=== PATIENT | male | born 1965 | race Caucasian/White ===

== ENCOUNTER 2024-02-17 12:14 | Observation (INO) | payer OTHER, SELFPAY ==
[2024-02-17] VITALS (15 sets, daily range): BP systolic 126–145; BP diastolic 85–95; PULSE 73–106; RESP 12–20; TEMP 35.9–36.9; O2SAT 93–98; BMI 24.0; BMI 23.2
[2024-02-17] MEDS: 0.9 % SODIUM CHLORIDE 1000 ml 1,000 ML IV ×2 (13:00→21:42)
[2024-02-17 13:11] LABS: Lactate* 2.8 mmol/L (0.5-1.9); PCO2 VBG 48 mmHG (40-50); PO2 VBG < 30.1 mmHG (25-47); pH VBG 7.302 (7.32-7.43)
[2024-02-17 13:12] LABS: HCO3 VBG 24 mmol/L (21-28)
[2024-02-17 13:15] LABS: Basophils Percent Auto 0.4 % (0.0-3.0); Eosinophils Percent Auto 0.4 % (0.0-7.0); Hematocrit 48.6 % (37.0-53.0); Hemoglobin* 16.9 gm/dL (13.5-17.5); Immature Granulocytes Pct Auto 0.5 %; Lymphocytes Percent Auto 18.6 % (20-44); Mean Corpuscular HGB Conc 35 gm/dL (32-36); Mean Corpuscular Hemoglobin 30 pg (26-34); Mean Corpuscular Volume 86 fL (80-100); Monocytes Percent Auto 6.5 % (0.0-11.0); Neutrophils Percent Auto 73.6 % (42.0-72.0); Platelet Count* 219 K/uL (140-440); RDW Coefficient of Variation % 11.2 % (11.5-15.5); Red Blood Count 5.64 m/uL (4.30-5.90); White Blood Count* 11.23 K/uL (4.50-11.00)
[2024-02-17 13:19] LABS: Slide Review Reflex No
[2024-02-17 13:28] LABS: Albumin* 5.1 g/dL (3.3-5.0)
[2024-02-17 13:29] LABS: Chloride* 94 mmol/L (96-114); Potassium* 4.7 mmol/L (3.6-5.1); Sodium* 130 mmol/L (135-149)
[2024-02-17 13:31] LABS: Creatinine* 0.8 mg/dL (0.5-1.5); Est. Creatinine Clearance* 101.88; Estimated Glomerular Filt Rate 103 ml/min
[2024-02-17 13:32] LABS: Alanine Aminotransferase* 26 U/L (4-50); Alkaline Phosphatase* 115 U/L (40-150); Anion Gap 15 mEq/L (7-15); Aspartate Amino Transferase* 29 U/L (12-35); Bilirubin Direct* 0.4 mg/dL (0.0-0.5); Bilirubin Total* 0.9 mg/dL (0.1-1.5); Blood Urea Nitrogen* 24 mg/dL (7-30); Carbon Dioxide* 21 mmol/L (20-32); Total Protein* 8.2 g/dL (6.0-8.3)
[2024-02-17 13:34] LABS: Appearance Urine Clear (Clear); Bilirubin Urine Negative (Negative); Color Urine Yellow (Yellow); Glucose Urine 3+ (Negative); Ketones Urine 2+ (Negative)
[2024-02-17 13:35] LABS: Blood Urine Negative (Negative); Leukocyte Esterase Urine Negative (Negative); Nitrite Urine Negative (Negative); Protein Urine Negative (Negative); RBC Urine 0-2 (0-2); Squamous Epithelial Cell Urine Few (None-Few); Urobilinogen Urine 0.2 (0.2-1.0); WBC Urine 0-2 (0-5); pH Urine 5.5 (5.0-8.5)
[2024-02-17 13:41] LABS: Glucose* 631 mg/dL (60-115)
[2024-02-17] MEDS: INSULIN REGULAR, HUMAN 100 UNIT/ML VIAL 10 UNIT IVP (13:42)
[2024-02-17 13:45] LABS: Troponin I* < 0.01 ng/mL (0.01-0.04)
--- NOTE | 2024-02-17 14:01 | ED_ITS ---
HPI - General Adult General Chief complaint: Diabetic Related Problem Stated complaint: high blood sugar Time Seen by Provider: 02/17/24 12:15 Source: patient Mode of arrival: ambulatory Limitations: no limitations History of Present Illness HPI narrative: 58-year-old male coming in today concerned about high blood sugars. Patient states that in the last few days he has started feeling more thirsty and has been urinating significantly more than usual. Patient states that he was diagnosed with prediabetes approximately 4 years ago and was placed on metformin. He states that he ran out of his medications along with statin and other medications he was taking at that time, and he did not get them refilled. With the increased thirst and urination he started rechecking sugars and they are in the 500s. Patient presented today for evaluation. He states that he has been feeling lightheaded, every now and then he gets chest discomfort, he also complains of coffee ground appearance of his stool that he has noticed over the last couple of weeks. He does have a history of a bleeding gastric ulcer, he is on daily omeprazole and does continue to take that. He states that he started taking his metformin 1000 mg p.o. b.i.d. in the last couple of days but it causes stomach discomfort. Patient does feel a bit lightheaded, denies vertiginous symptoms. Related Data Home Medications ?Medication ?Instructions ?Recorded ?Confirmed metformin 1,000 mg tablet 1,000 mg PO BID 02/17/24 02/17/24 Allergies Allergy/AdvReac Type Severity Reaction Status Date / Time No Known Drug Allergies Allergy Verified 02/17/24 12:23 Review of Systems Status of ROS: Reports: 10 or more systems reviewed and unremarkable except as noted in History and below [facility] Social History Smoking Status: Never smoker Do you use any of these nicotine containing products: None Second hand tobacco smoke exposure: No How often do you have a drink containing alcohol: monthly or less How many standard drinks containing alcohol do you have on a typical day: 1 or 2 How often do you have six or more drinks on one occasion: Never AUDIT-C Alcohol total score: 1 Non-prescribed substance use: marijuana (any form) Exam Narrative: Exam Narrative: Well-nourished well-developed patient in no acute distress. Alert and oriented. Answers questions appropriately. Mood and affect are appropriate. Thoughts are goal oriented and rational. No tangential or magical thinking noted. Patient speaks in full sentences without needing to catch his breath. HEENT: Normocephalic atraumatic. Pupils are equally round reactive to light. Extraocular muscles are intact. Conjunctivae are moist without any icterus noted. Moist mucous membranes. Neck is soft. Cardiovascular: Heart is regular rhythm, mildly tachycardic, S1 and S2 are present without any murmurs. Lungs: Clear to auscultation bilaterally no wheezes rhonchi or rales are appreciated. Patient takes deep breaths without any discomfort. Abdomen: Soft and nontender nondistended with normal bowel sounds. No guarding or rebound. No masses or organomegaly appreciated. Extremities: Bilateral lower extremities are without edema. Skin: Well perfused. Const: Vital Signs, click to edit/add: Vital Signs - 24 hr 02/17/24 12:19 02/17/24 12:50 Temperature 96.6 F L Pulse Rate [Right Pulse Oximeter] 106 H Respiratory Rate 20 Blood Pressure [Ri ght Upper Arm] 132/85 Pulse Oximetry 95 98 Oxygen Delivery Me thod Room Air Course Course ED Course: Point of care glucose greater than 600. EKG, read by me, shows normal sinus rhythm with a pulse of 93. IV is established and we start the patient on normal saline and regular insulin bolus. CBC is fairly unremarkable. Chemistries show sodium at 1:30 a.m., normal potassium at 4.7, low chloride at 94. Normal renal function. Glucose is 631. Lactate elevated at 2.8. Normal LFTs, normal troponin. VBG shows a pH of 7.30 with a normal pCO2 and HC03. UA positive for ketones and glucose. Repeat glucose after insulin and fluids: 448. Discussed patient with hospitalist, who has accepted the patient for admission. Vital Signs Vital signs: Initial Vital Signs Temperature 96.6 F L 02/17/24 12:19 Temperature Source Temporal Artery Scan 02/17/24 12:19 Pulse Rate 106 H 02/17/24 12:19 Pulse Rhythm Regular 02/17/24 12:19 Pulse Strength 3+ Normal 02/17/24 12:19 Respiratory Rate 20 02/17/24 12:19 Blood Pressure 132/85 02/17/24 12:19 Blood Pressure Mean 100 02/17/24 12:19 Blood Pressure Position Sitting 02/17/24 12:19 Pulse Oximetry 95 02/17/24 12:19 Oxygen Delivery Method Room Air 02/17/24 12:19 Vital Signs Temperature 96.6 F L 02/17/24 12:19 Pulse Rate 106 H 02/17/24 12:19 Respiratory Rate 20 02/17/24 12:19 Blood Pressure 132/85 02/17/24 12:19 Pulse Oximetry 95 02/17/24 12:19 Oxygen Delivery Method Room Air 02/17/24 12:19 Temperature 96.6 F L 02/17/24 12:19 Pulse Rate 106 H 02/17/24 12:19 Respiratory Rate 20 02/17/24 12:19 Blood Pressure 132/85 02/17/24 12:19 Pulse Oximetry 98 02/17/24 12:50 Oxygen Delivery Method Room Air 02/17/24 12:19 Medications Administered Medications: Discontinued Medications Generic Name Dose Route Start Last Admin Trade Name Freq PRN Reason Stop Dose Admin Sodium Chloride 1,000 mls @ 1,000 mls/hr 02/17/24 12:45 02/17/24 14:16 0.9 % Sodium Chloride 1000 Ml IV 02/17/24 13:44 Infused .Q1H SAMEERA Infusion Insulin Human Regular 10 unit 02/17/24 12:47 02/17/24 13:42 Insulin Regular, Human 100 Unit/Ml Vial IVP 02/17/24 12:48 10 unit ONCE ONE Administration Medical Decision Making MDM Narrative Medical decision making narrative: 58-year-old male with diabetes and hyperglycemia. Patient will be admitted for further management. Lab Data Lab results reviewed: Yes I reviewed the patient's lab results Labs: Lab Results 02/17/24 02/17/24 02/17/24 Range/Units 12:50 12:55 13:07 WBC 11.23 H (4.50-11.00) K/uL RBC 5.64 (4.30-5.90) m/uL Hgb 16.9 (13.5-17.5) gm/dL Hct 48.6 (37.0-53.0) % MCV 86 (80-100) fL MCH 30 (26-34) pg MCHC 35 (32-36) gm/dL RDW Coeff of [place] 11.2 L (11.5-15.5) % Plt Count 219 (140-440) K/uL Neut % (Auto) 73.6 H (42.0-72.0) % Lymph % (Auto) 18.6 L (20-44) % Cross % (Auto) 6.5 (0.0-11.0) % Eos % (Auto) 0.4 (0.0-7.0) % Baso % (Auto) 0.4 (0.0-3.0) % Neut # (Auto) 8.30 H (1.7-7.0) K/uL Lymph # (Auto) 2.10 (0.90-2.90) K/uL Cross # (Auto) 0.70 (0.00-0.90) K/UL Eos # (Auto) 0.00 (0.00-0.50) K/uL Baso # (Auto) 0.00 (0.00-0.30) K/uL Abs Immat Gran (auto) 0.10 (0.00-0.30) K/uL Imm/Tot Granulo (auto) 0.5 % VBG pH 7.302 L (7.32-7.43) VBG pCO2 48 (40-50) mmHG VBG pO2 < 30.1 (25-47) mmHG VBG HCO3 24 (21-28) mmol/L Sodium 130 L (135-149) mmol/L Potassium 4.7 (3.6-5.1) mmol/L Chloride 94 L (96-114) mmol/L Carbon Dioxide 21 (20-32) mmol/L Anion Gap 15 (7-15) mEq/L BUN 24 (7-30) mg/dL Creatinine 0.8 (0.5-1.5) mg/dL Estimated Creat Clear 101.88 Estimated GFR 103 ml/min Glucose 631 H* (60-115) mg/dL Lactate 2.8 H (0.5-1.9) mmol/L Calcium 10.0 (8.4-10.6) mg/dL Magnesium 2.0 (1.5-2.6) mg/dL Total Bilirubin 0.9 (0.1-1.5) mg/dL Direct Bilirubin 0.4 (0.0-0.5) mg/dL AST 29 (12-35) U/L ALT 26 (4-50) U/L Alkaline Phosphatase 115 (40-150) U/L Troponin I < 0.01 L (0.01-0.04) ng/mL Total Protein 8.2 (6.0-8.3) g/dL Albumin 5.1 H (3.3-5.0) g/dL Urine Color Yellow (Yellow) Urine Appearance Clear (Clear) Urine pH 5.5 (5.0-8.5) Ur Specific [place] 1.010 (1.000-1.030) Urine Protein Negative (Negative) Urine Glucose (UA) 3+ A (Negative) Urine Ketones 2+ A (Negative) Urine Blood Negative (Negative) Urine Nitrite Negative (Negative) Urine Bilirubin Negative (Negative) Urine Urobilinogen 0.2 (0.2-1.0) Ur Leukocyte Esterase Negative (Negative) Urine RBC 0-2 (0-2) Urine WBC 0-2 (0-5) Ur Squamous Epith Cells Few (None-Few) Urine Bacteria None (None) POC Glucose 600 H* (60-115) mg/dl ECG Data Attestation: I personally reviewed and interpreted this ECG as follows: Discharge Plan Discharge Clinical Impression: New onset type 2 diabetes mellitus, Acute hyperglycemia Patient Disposition: Admitted As Observation Condition: Stable Prescriptions: No Action metformin 1,000 mg tablet 1,000 mg PO BID Follow Up/Referrals: Devang Mulligan MD [Primary Care Provider] -
[2024-02-17 14:19] LABS: Glucose, Point-of-Care* 600 mg/dl (60-115)
--- NOTE | 2024-02-17 15:28 | PM.IMHP1 ---
Hospitalist- H&P: HPI History of Present Illness Date Seen: 02/17/24 Chief complaint: high blood sugar Narrative: Jordan Spear is a 58 year old man presents with the 3 week history of increasing blurred vision, polyuria, polydipsia, intermittent nausea and retching. States for the last 2-4 days he has had ?coffee-ground? appearance to his stool intermittently. Decided to start omeprazole for this. Denies brenda bright red blood per rectum, hematemesis, or coffee-ground emesis. In the last few days he decided to check his blood sugars and they were greater than 500, read by his blood glucose monitoring device as high. He opted to restart metformin 1000 mg twice daily which she had prescribed to him 3 years ago in which he had quit 3 years ago due to concerns of abdominal discomfort. He states his blood sugars the last couple of days have been as low as 375-450. Last 2 days has had increasing lightheadedness and intermittent orthostasis. Review of Systems Status of ROS: Reports: 10 or more systems reviewed and unremarkable except as noted in History and below Narrative: No recent fevers, rigors, diaphoresis. Denies dyspnea, cough, worsening headache, dysuria, urgency, or hematuria. Denies diarrhea. No skin concerns such as cellulitis or abscess or ulcer. Cardiopulmonary review of systems otherwise unremarkable. Lives with his , Steph. Designates Steph as his power of analytics director for health should that be required, her cell phone number is [phone]. Requests full resuscitation in the event of cardiopulmonary demise. Primary care physician is Dr. Mulligan. Has an appointment with his primary care physician at the end of February. Ordinarily has water down drink of alcohol 3 times weekly. Has not had any alcoholic consumption for the last 2 weeks. Denies use of tobacco products. Acknowledges smoking marijuana 2 to 3 times a day. 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 [facility] Medical History (Updated 02/17/24 @ 15:50 by José Miguel Odom MD) History of noncompliance with medical treatment ?Z91.199 - Patient's noncompliance with other medical treatment and regimen due to unspecified reason (ICD-10) Marijuana use ?F12.90 - Cannabis use, unspecified, uncomplicated (ICD-10) History of peptic ulcer disease ?Z87.11 - Personal history of peptic ulcer disease (ICD-10) History of prediabetes ?Z87.898 - Personal history of other specified conditions (ICD-10) Surgical History Status post colonoscopy ?Z98.890 - Other specified postprocedural states (ICD-10) Family History Brother Diabetes Mother Diabetes Heart disease Father Heart disease Social History What is your current living situation?: I presently have a place to live Problems where you live: no known problems Problems where you live details: none In the past 12 months, utilities in danger of being shut off: no In past 12 months, lack of transportation kept you from medical appts, meetings, work, or getting things needed for daily living: no In the past 12 mos, have been you worried that your food would run out before you had money to buy more?: never true In the past 12 mos, the food you bought just didn't last and you didn't have money to buy more?: never true Highest level of school completed/degree received: some college, no degree Smoking Status: Never smoker Do you use any of these nicotine containing products: None Second hand tobacco smoke exposure: No How often do you have a drink containing alcohol: 2-3 times a week Alcohol type: hard liquor How many standard drinks containing alcohol do you have on a typical day: 1 or 2 How often do you have six or more drinks on one occasion: Never AUDIT-C Alcohol total score: 3 Non-prescribed substance use: marijuana (any form) Caffeine: Yes How often does anyone, including family, friends and others, physically hurt you: never How often does anyone, including family, friends and others, insult or talk down to you: never How often does anyone, including family, friends and others, threaten you with harm: never How often does anyone, including family, friends and others, scream or curse at you: never service: No Meds Home Medications and Allergies Home Medications ?Medication ?Instructions ?Recorded ?Confirmed ?Type aspirin 81 mg tablet,delayed 81 mg PO DAILY 02/17/24 02/17/24 History release atorvastatin 20 mg tablet 20 mg PO QHS 02/17/24 02/17/24 History metformin 1,000 mg tablet 1,000 mg PO BID 02/17/24 02/17/24 History omeprazole 20 mg capsule,delayed 20 mg PO DAILY 02/17/24 02/17/24 History release Allergies Allergy/AdvReac Type Severity Reaction Status Date / Time No Known Drug Allergies Allergy Verified 02/17/24 12:23 Exam Narrative: Exam Narrative: I examined patient in the emergency department. Appears comfortable and in no acute distress. Indicates he is feeling a little better with IV fluids and insulin. Hearing is adequate. Alert and oriented to self, place, time, situation. From the, articulate, cooperative. External auditory canals and tympanic membranes are normal bilaterally. Midline nasal septum. Conjugate gaze. Dry buccal mucosa. Dentition in fair repair. Neck is supple. Midline trachea. Normal thyroid. No JVD or hepatojugular reflux. No head neck lymphadenopathy. Lungs are clear to auscultation without wheezing, rhonchi, or rales. Chest wall excursions are full. No CVA tenderness. Heart tones with regular rhythm, normal S1-S2, without murmur, gallop, or rub. PMI not laterally displaced. Abdomen with active bowel sounds, soft, nontender. No rebound or guarding. No hepatosplenomegaly or masses. Extremities without edema. No focal motor neurologic deficits. Cranial nerves 3-12 grossly intact. Skin is warm, dry, intact. No icterus, jaundice, cyanosis, petechiae, rashes. Const: Vital Signs, click to edit/add: Vital Signs - 24 hr 02/17/24 12:19 02/17/24 12:50 02/17/24 13:08 Temperature 96.6 F L Pulse Rate 95 Pulse Rate [Pulse Oximeter] Pulse Rate [Right Pulse Oximeter] 106 H Respiratory Rate 20 Blood Pressure 132/92 H Blood Pressure [Ri ght Upper Arm] 132/85 Pulse Oximetry 95 98 94 Oxygen Delivery Me thod Room Air 02/17/24 13:09 02/17/24 13:15 02/17/24 13:30 Temperature Pulse Rate 94 90 91 Pulse Rate [Pulse Oximeter] Pulse Rate [Right Pulse Oximeter] Respiratory Rate Blood Pressure Blood Pressure [Ri ght Upper Arm] Pulse Oximetry 93 96 96 Oxygen Delivery Me thod 02/17/24 13:45 02/17/24 14:00 02/17/24 14:04 Temperature Pulse Rate 90 95 91 Pulse Rate [Pulse Oximeter] Pulse Rate [Right Pulse Oximeter] Respiratory Rate Blood Pressure Blood Pressure [Ri ght Upper Arm] Pulse Oximetry 94 93 95 Oxygen Delivery Me thod 02/17/24 14:17 02/17/24 14:30 02/17/24 15:02 Temperature 97.9 F Pulse Rate 97 97 Pulse Rate [Pulse Oximeter] 97 Pulse Rate [Right Pulse Oximeter] Respiratory Rate 12 Blood Pressure Blood Pressure [Ri ght Upper Arm] Pulse Oximetry 96 95 97 Oxygen Delivery Me thod Room Air Hospitalist - H&P: Result Labs Labs: Short CBC 02/17/24 Range/Units 12:55 WBC 11.23 H (4.50-11.00) K/uL Hgb 16.9 (13.5-17.5) gm/dL Hct 48.6 (37.0-53.0) % Plt Count 219 (140-440) K/uL BMP 02/17/24 12:55 Sodium 130 L Potassium 4.7 Chloride 94 L Carbon Dioxide 21 BUN 24 Creatinine 0.8 Glucose 631 H* Calcium 10.0 Cardiac Enzymes 02/17/24 Range/Units 12:55 Troponin I < 0.01 L (0.01-0.04) ng/mL Liver Function 02/17/24 Range/Units 12:55 Total Bilirubin 0.9 (0.1-1.5) mg/dL Direct Bilirubin 0.4 (0.0-0.5) mg/dL AST 29 (12-35) U/L ALT 26 (4-50) U/L Alkaline Phosphatase 115 (40-150) U/L Albumin 5.1 H (3.3-5.0) g/dL Urine 02/17/24 Range/Units 13:07 Urine Color Yellow (Yellow) Urine Appearance Clear (Clear) Urine pH 5.5 (5.0-8.5) Ur Specific [place] 1.010 (1.000-1.030) Urine Protein Negative (Negative) Urine Glucose (UA) 3+ A (Negative) ECG ECG interpretation date: 02/17/24 Interpretation: Normal sinus rhythm without ischemic changes. Assessment and Plan Assessment and plan (1) Acute hyperglycemia: Problem comment: -uncontrolled diabetes mellitus type 2. Patient just now coming to terms with the fact that he has diabetes mellitus type 2. -aspart insulin 5 units with each meal plus sliding scale for now. -will start on lower dose of metformin to see if he tolerates it at 500 mg twice daily. Consider dose increase if tolerates. -IV fluids with normal saline -dietary consultation Status: Acute (2) New onset type 2 diabetes mellitus: Problem comment: -has had diabetes mellitus type 2 at least since 2020. Patient only now starting to acknowledge this. Historically hemoglobin A1c was 9.8 in November 2020. Was started on treatment with metformin at that time and then on 03/03/2021 hemoglobin A1c is down to 7.1. Has not had follow-up since. Status: Acute (3) Complaint of melena: Problem comment: -history of peptic ulcer disease in the past -check for Helicobacter pylori antigen -check stool for occult blood -single dose of pantoprazole 40 mg IV now and then start omeprazole 20 mg q.d. tomorrow morning Status: Acute (4) History of noncompliance with medical treatment: Problem comment: -unilaterally stopped use of metformin in 2020 and has not sought medical attention until 02/17/2024, when admitted to hospital with glucose 600+ and venous pH 7.3, and elevated lactate. -patient has already set up appointment with his primary care physician in the latter part of February 2024 Status: Acute (5) Marijuana use: Problem comment: -2-3 times daily. Status: Acute (6) Pseudohyponatremia: Problem comment: -monitor. Treat hyperglycemia. Status: Acute Plan 1. Reviewed impression with patient and . 2. Answered their questions. 3. They are agreeable with above stated plans and recommendations. Total Time Spent Total Time Spent: 65 minute
[2024-02-17] MEDS: 0.9 % SODIUM CHLORIDE 1000 ml 1,000 ML 125 ML IV (15:45)
[2024-02-17] MEDS: PANTOPRAZOLE SODIUM 40 MG INJ IVP (15:45)
[2024-02-17 16:17] LABS: Lactate* 2.1 mmol/L (0.5-1.9)
[2024-02-17 16:20] LABS: Hemoglobin* 15.2 gm/dL (13.5-17.5)
[2024-02-17 16:33] LABS: Chloride* 98 mmol/L (96-114); Potassium* 4.8 mmol/L (3.6-5.1); Sodium* 130 mmol/L (135-149)
[2024-02-17 16:36] LABS: Anion Gap 9 mEq/L (7-15); Blood Urea Nitrogen* 24 mg/dL (7-30); Carbon Dioxide* 23 mmol/L (20-32); Creatinine* 0.7 mg/dL (0.5-1.5); Est. Creatinine Clearance* 120.22; Estimated Glomerular Filt Rate 107 ml/min; Lipase* 225 U/L (23-300); Phosphorus* 4.1 mg/dL (2.5-4.5)
[2024-02-17 16:37] LABS: Calcium* 9.2 mg/dL (8.4-10.6); Magnesium* 1.9 mg/dL (1.5-2.6)
[2024-02-17 16:43] LABS: Glucose* 472 mg/dL (60-115)
[2024-02-17] MEDS: INSULIN ASPART 100 UNIT/ML 10 UNIT SUBCUT (17:20)
[2024-02-17] MEDS: INSULIN ASPART 100 UNIT/ML SUBCUT ×2 (17:21→21:18)
--- NOTE | 2024-02-17 18:23 | PC.NURSE ---
End of Shift: Patient pleasant and cooperative, arrived to the floor about 1500. Patient vitally stable, lungs clear, BS WNL, IV running NS at 125. Patient denies pain and is independent in room. Patient tolerating regular diet and urinating well, No BM. Patient blood sugar 405.
[2024-02-17] MEDS: METFORMIN 500 MG TABLET PO (19:41)
[2024-02-17 20:19] LABS: Hemoglobin* 15.2 gm/dL (13.5-17.5)
[2024-02-17 20:38] LABS: Chloride* 105 mmol/L (96-114); Potassium* 3.9 mmol/L (3.6-5.1); Sodium* 134 mmol/L (135-149)
[2024-02-17 20:41] LABS: Anion Gap 12 mEq/L (7-15); Blood Urea Nitrogen* 19 mg/dL (7-30); Carbon Dioxide* 17 mmol/L (20-32); Creatinine* 0.7 mg/dL (0.5-1.5); Est. Creatinine Clearance* 120.22; Estimated Glomerular Filt Rate 107 ml/min; Glucose* 217 mg/dL (60-115)
[2024-02-17 20:42] LABS: Calcium* 9.2 mg/dL (8.4-10.6)
[2024-02-17 21:06] LABS: PCO2 VBG 27 mmHG (40-50); PO2 VBG 36.5 mmHG (25-47); pH VBG 7.508 (7.32-7.43)
[2024-02-17 21:07] LABS: HCO3 VBG 21 mmol/L (21-28)
[2024-02-17] MEDS: ATORVASTATIN 10 MG TABLET 20 MG PO (21:17)
[2024-02-17 21:34] LABS: Fecal Occult Blood* Negative (Negative)
[2024-02-17] MEDS: POTASSIUM CHLORIDE 10 MEQ CAPSULE ER 20 MEQ PO (21:42)
[2024-02-17 22:38] LABS: HCO3 VBG 25 mmol/L (21-28); PCO2 VBG 40 mmHG (40-50); PO2 VBG 40.8 mmHG (25-47); pH VBG 7.395 (7.32-7.43)
[2024-02-17 22:39] LABS: Lactate* 2.1 mmol/L (0.5-1.9)
[2024-02-17 22:59] LABS: Chloride* 106 mmol/L (96-114); Potassium* 3.4 mmol/L (3.6-5.1); Sodium* 136 mmol/L (135-149)
[2024-02-17 23:02] LABS: Anion Gap 6 mEq/L (7-15); Carbon Dioxide* 24 mmol/L (20-32); Creatinine* 0.6 mg/dL (0.5-1.5); Est. Creatinine Clearance* 140.25; Estimated Glomerular Filt Rate 113 ml/min
[2024-02-17 23:03] LABS: Blood Urea Nitrogen* 18 mg/dL (7-30); Calcium* 8.6 mg/dL (8.4-10.6); Glucose* 138 mg/dL (60-115); Magnesium* 1.9 mg/dL (1.5-2.6)
[2024-02-17] MEDS: 5 % DEXTROSE/0.9% SOD CHLORIDE 1,000 ML 125 ML IV (23:18)
[2024-02-18] MEDS: POTASSIUM CHLORIDE 10 MEQ CAPSULE ER 40 MEQ PO
[2024-02-18 01:44] VITALS: BP 121/84; PULSE 70; RESP 16; TEMP 36.6; O2SAT 95
--- NOTE | 2024-02-18 06:11 | PC.NURSE ---
[id number]: Pt is pleasant, cooperative, and appropriate. VSS. Independent. Uses call light appropriately. Patient tolerating diet and urinating well. BM 02/17/24. Pt blood sugars: 271, 102. Pt has frequent stomach aches and request snack q2h. Denies pain, SOB, N/V.?Undertaker Helper check BG at 0500, showing 344. Paged and held D5NS that was running at 125 mL/hr. Pt saline locked and asymptomatic.
[2024-02-18 06:34] LABS: Appearance Urine Clear (Clear); Bilirubin Urine Negative (Negative); Blood Urine Negative (Negative); Color Urine Yellow (Yellow); Glucose Urine 3+ (Negative); Ketones Urine 1+ (Negative); Leukocyte Esterase Urine Negative (Negative); Nitrite Urine Negative (Negative); Protein Urine Negative (Negative); Urobilinogen Urine 0.2 (0.2-1.0); pH Urine 5.5 (5.0-8.5)
[2024-02-18 06:46] LABS: HCO3 VBG 23 mmol/L (21-28); Lactate* 0.9 mmol/L (0.5-1.9); PCO2 VBG 37 mmHG (40-50); PO2 VBG 57.2 mmHG (25-47); pH VBG 7.397 (7.32-7.43)
[2024-02-18 06:51] LABS: Hematocrit 37.3 % (37.0-53.0); Mean Corpuscular HGB Conc 35 gm/dL (32-36); Mean Corpuscular Hemoglobin 30 pg (26-34); Mean Corpuscular Volume 87 fL (80-100); Platelet Count* 160 K/uL (140-440); White Blood Count* 9.94 K/uL (4.50-11.00)
[2024-02-18 06:56] LABS: Slide Review Reflex No
[2024-02-18 07:05] LABS: Chloride* 106 mmol/L (96-114)
[2024-02-18 07:06] LABS: Potassium* 4.7 mmol/L (3.6-5.1); Sodium* 132 mmol/L (135-149)
[2024-02-18 07:08] LABS: Cholesterol* 143 mg/dL (90-199); Creatinine* 0.6 mg/dL (0.5-1.5); Est. Creatinine Clearance* 140.25; Estimated Glomerular Filt Rate 113 ml/min
[2024-02-18 07:09] LABS: Anion Gap 3 mEq/L (7-15); Blood Urea Nitrogen* 14 mg/dL (7-30); Calcium* 8.3 mg/dL (8.4-10.6); Carbon Dioxide* 23 mmol/L (20-32); Glucose* 344 mg/dL (60-115); Magnesium* 1.9 mg/dL (1.5-2.6); Phosphorus* 3.3 mg/dL (2.5-4.5); Triglycerides* 228 mg/dL (40-149)
[2024-02-18 07:10] LABS: HDL Cholesterol* 25 mg/dL (>=40); LDL Cholesterol Calculated 72 mg/dL (<100)
[2024-02-18 07:40] VITALS: BP 140/91; PULSE 73; RESP 18; TEMP 36.7; O2SAT 95
[2024-02-18 07:41] LABS: Hemoglobin A1C* > 14.0 % (0-5.6)
[2024-02-18] MEDS: METFORMIN 500 MG TABLET PO (08:34)
[2024-02-18] MEDS: INSULIN ASPART 100 UNIT/ML SUBCUT ×2 (08:36→12:04)
[2024-02-18] MEDS: SODIUM CHLORIDE 0.9 % (FLUSH) 10 ML SYRINGE 5 ML IVF (08:54)
[2024-02-18 11:00] VITALS: BP 126/84; PULSE 75; RESP 18; TEMP 36.7; O2SAT 96
[2024-02-18 11:35] LABS: H pylori Ag Stool* Negative (Negative)
--- NOTE | 2024-02-18 11:51 | NUTR.NU ---
RDn with MD consult for diabetic teaching. Patient admitted for hyperglycemia. Current weight 167 lb 1oz; height 5ft 10inches. BMI 24.0 kg/m2. No weight history to assess. Diet is Diabetic. Meal intakes since admit have been been adequate at 100%. Hemoglobin A1C 02/18/2024 - >14%. Patient was diagnosed with type 2 diabetes mellitus a couple years ago, however has not followed up with his primary care provider and was left unmanaged. RDN visited with patient and , Steph, (designated caregiver) whom reports he had diet education for diabetes a few years ago. He reports he has not changed his diet. He likes carbohydrates and sweet. For breakfast he will have a breakfast sandwich from [employer] and 16.fl.oz chocolate milk. For meals he will have a hamburger, [place] fries, and regular soda. Patient agreed to receive diet education. Diabetic diet education provided. Discussed basics of carbohydrate counting including sources of carbohydrates, serving sizes, and label reading. Discussed using the plate method for carbohydrate-controlled, balanced meals that include ? plate non-starchy vegetables, ? plate protein, and ~4 servings of carbohydrates per meal (fruit, whole grains, legumes, milk, yogurt) and 1-2 per snack. Handouts provided to support discussion. RDN contact information provided and encouraged patient to call with questions. RDN to follow up as needed.
--- NOTE | 2024-02-18 12:25 | PM.DS1 ---
DS: Providers Provider Date Seen: 02/18/24 Date of admission: 02/17/24 14:48 Primary care physician: Devang Mulligan MD Admitting Clinician: José Miguel Odom MD Consults: Nutrition Attending Physician on discharge: Yoli Thao MD Date of Discharge: 02/18/24 DS: Diagnosis Discharge Diagnosis (1) Acute hyperglycemia: Status: Acute Problem details: - Uncontrolled DM2, A1C >14 - restarting Metformin, adding Lantus at night - gap closed and pH normalized on hospital day 1, patient requesting d/c home with RN and close PCP f/u (2) Complaint of melena: Status: Acute Problem details: - history of peptic ulcer disease in the past - negative Helicobacter pylori antigen, negative FOBT - single dose of pantoprazole 40 mg IV on admission and then start omeprazole 20 mg daily upon discharge (3) History of noncompliance with medical treatment: Status: Acute Problem details: - unilaterally stopped use of metformin in 2020 and hasn't seen PCP since. On 02/17/24, admitted to hospital with glucose 600+, venous pH 7.3, elevated lactate. - patient has already set up appointment with his primary care physician in the latter part of February 2024 (4) Marijuana use: Status: Acute Problem details: - 2-3 times daily; discussed that this may also be aggravating his abdominal symptoms and he is considering a trial without this substance DS: Summary Hospital Course Hospital Course: Jordan was admitted to the hospital on 02/16 with hyperglycemia, increased PH, elevated lactate. Known type 2 diabetes; had not been compliant with Metformin in the past. Blood sugar on arrival to the emergency room was 600. During stay, received IV fluids, insulin, diabetic teaching. His blood sugar improved on hospital day 1, pH normalized and anion gap closed; requesting discharge home. Also noted some abdominal pain and discomfort with a history of peptic ulcer disease. Unclear if uncontrolled DM2, Metformin, or marijuana use contributing. Hemoglobin remained stable, stool occult blood negative, negative H pylori. Discharging home on Omeprazole with PCP follow-up to discuss further outpatient workup. Patient discharging home on 02/17 with close PCP f/u. Status at Discharge Functional status at discharge: independent ambulation Overall status at discharge: patient is progressing back to baseline Time Spent with Patient Time attestation: Total time spent providing and/or coordinating discharge services: Time spent: Greater than 30 minutes Specific discharge activities: patient education, medication reconciliation Exam Narrative: Exam Narrative: GEN: Alert and oriented, nontoxic HEENT: EOMIs bilaterally, no scleral icterus CV: RRR, No concerning murmurs R: LCTA bilaterally without concerning wheezing, air movement adequate Ab: Soft and nontender, tolerates palpation Ext: wwp, no concerning edema Skin: No concerning skin lesions or rashes on exposed skin Neuro: Nonfocal Psych: Appropriate Const: Vital Signs, click to edit/add: Vital Signs - 24 hr 02/17/24 12:50 02/17/24 13:08 02/17/24 13:09 Temperature Pulse Rate 95 94 Pulse Rate [Pulse Oximeter] Respiratory Rate Blood Pressure 132/92 H Blood Pressure [Ri ght Arm] Pulse Oximetry 98 94 93 Oxygen Delivery Me thod 02/17/24 13:15 02/17/24 13:30 02/17/24 13:45 Temperature Pulse Rate 90 91 90 Pulse Rate [Pulse Oximeter] Respiratory Rate Blood Pressure Blood Pressure [Ri ght Arm] Pulse Oximetry 96 96 94 Oxygen Delivery Me thod 02/17/24 14:00 02/17/24 14:04 02/17/24 14:17 Temperature Pulse Rate 95 91 97 Pulse Rate [Pulse Oximeter] Respiratory Rate Blood Pressure Blood Pressure [Ri ght Arm] Pulse Oximetry 93 95 96 Oxygen Delivery Me thod 02/17/24 14:30 02/17/24 15:02 02/17/24 15:57 Temperature 97.9 F Pulse Rate 97 Pulse Rate [Pulse Oximeter] 97 Respiratory Rate 12 12 Blood Pressure Blood Pressure [Ri ght Arm] Pulse Oximetry 95 97 97 Oxygen Delivery Me thod Room Air Room Air 02/17/24 19:00 02/17/24 23:00 02/18/24 01:44 Temperature 97.9 F 98.4 F 97.8 F Pulse Rate Pulse Rate [Pulse Oximeter] 82 73 70 Respiratory Rate 16 14 16 Blood Pressure Blood Pressure [Ri ght Arm] 145/95 H 126/89 121/84 Pulse Oximetry 95 97 [facility] Room Air 02/18/24 07:40 02/18/24 07:40 Temperature 98.1 F Pulse Rate Pulse Rate [Pulse Oximeter] 73 73 Respiratory Rate 18 18 Blood Pressure Blood Pressure [Ri ght Arm] 140/91 H Pulse Oximetry 95 Oxygen Delivery Me thod Room Air DS: Data Data Completed and Pending Labs on day of discharge: Labs from last 24 hours 02/18/24 02/18/24 02/18/24 11:17 06:22 06:00 WBC 9.94 RBC 4.30 Hgb 13.0 L Hct 37.3 MCV 87 MCH 30 MCHC 35 RDW Coeff of [place] Plt Count 160 Neut % (Auto) Lymph % (Auto) [place] % (Auto) Eos % (Auto) Baso % (Auto) Neut # (Auto) Lymph # (Auto) [place] # (Auto) Eos # (Auto) Baso # (Auto) Abs Immat Gran (auto) Imm/Tot Granulo (auto) VBG pH 7.397 VBG pCO2 37 L VBG pO2 57.2 H VBG HCO3 23 Sodium 132 L Potassium 4.7 Chloride 106 Carbon Dioxide 23 Anion Gap 3 L BUN 14 Creatinine 0.6 Estimated Creat Clear 140.25 Estimated GFR 113 Glucose 344 H Hemoglobin A1c > 14.0 H Lactate 0.9 Calcium 8.3 L Phosphorus 3.3 Magnesium 1.9 Total Bilirubin Direct Bilirubin AST ALT Alkaline Phosphatase Troponin I Total Protein Albumin Triglycerides 228 H Cholesterol 143 LDL Cholesterol, Calc 72 HDL Cholesterol 25 L Lipase TSH 1.390 Urine Color Yellow Urine Appearance Clear Urine pH 5.5 Ur Specific [place] 1.010 Urine Protein Negative Urine Glucose (UA) 3+ A Urine Ketones 1+ A Urine Blood Negative Urine Nitrite Negative Urine Bilirubin Negative Urine Urobilinogen 0.2 Ur Leukocyte Esterase Negative Urine RBC Urine WBC Ur Squamous Epith Cells Urine Bacteria Stool Occult Blood Stool H. pylori Ag Negative Lab Acknowledgement POC Glucose 02/17/24 02/17/24 02/17/24 22:25 20:10 18:39 WBC RBC Hgb 15.2 Hct MCV MCH MCHC RDW Coeff of [place] Plt Count Neut % (Auto) Lymph % (Auto) [place] % (Auto) Eos % (Auto) Baso % (Auto) Neut # (Auto) Lymph # (Auto) [place] # (Auto) Eos # (Auto) Baso # (Auto) Abs Immat Gran (auto) Imm/Tot Granulo (auto) VBG pH 7.395 7.508 H VBG pCO2 40 27 L VBG pO2 40.8 36.5 VBG HCO3 25 21 Sodium 136 134 L Potassium 3.4 L 3.9 Chloride 106 105 Carbon Dioxide 24 17 L Anion Gap 6 L 12 BUN 18 19 Creatinine 0.6 0.7 Estimated Creat Clear 140.25 120.22 Estimated GFR 113 107 Glucose 138 H 217 H Hemoglobin A1c Lactate 2.1 H 3.0 H Calcium 8.6 9.2 Phosphorus Magnesium 1.9 Total Bilirubin Direct Bilirubin AST ALT Alkaline Phosphatase Troponin I Total Protein Albumin Triglycerides Cholesterol LDL Cholesterol, Calc HDL Cholesterol Lipase TSH Urine Color Urine Appearance Urine pH Ur Specific [place] Urine Protein Urine Glucose (UA) Urine Ketones Urine Blood Urine Nitrite Urine Bilirubin Urine Urobilinogen Ur Leukocyte Esterase Urine RBC Urine WBC Ur Squamous Epith Cells Urine Bacteria Stool Occult Blood Negative Stool H. pylori Ag Lab Acknowledgement Test Added POC Glucose 02/17/24 02/17/24 02/17/24 16:13 13:07 12:55 WBC 11.23 H RBC 5.64 Hgb 15.2 16.9 Hct 48.6 MCV 86 MCH 30 MCHC 35 RDW Coeff of [place] 11.2 L Plt Count 219 Neut % (Auto) 73.6 H Lymph % (Auto) 18.6 L [place] % (Auto) 6.5 Eos % (Auto) 0.4 Baso % (Auto) 0.4 Neut # (Auto) 8.30 H Lymph # (Auto) 2.10 [place] # (Auto) 0.70 Eos # (Auto) 0.00 Baso # (Auto) 0.00 Abs Immat Gran (auto) 0.10 Imm/Tot Granulo (auto) 0.5 VBG pH 7.302 L VBG pCO2 48 VBG pO2 < 30.1 VBG HCO3 24 Sodium 130 L 130 L Potassium 4.8 4.7 Chloride 98 94 L Carbon Dioxide 23 21 Anion Gap 9 15 BUN 24 24 Creatinine 0.7 0.8 Estimated Creat Clear 120.22 101.88 Estimated GFR 107 103 Glucose 472 H* 631 H* Hemoglobin A1c Lactate 2.1 H 2.8 H Calcium 9.2 10.0 Phosphorus 4.1 Magnesium 1.9 2.0 Total Bilirubin 0.9 Direct Bilirubin 0.4 AST 29 ALT 26 Alkaline Phosphatase 115 Troponin I < 0.01 L Total Protein 8.2 Albumin 5.1 H Triglycerides Cholesterol LDL Cholesterol, Calc HDL Cholesterol Lipase 225 TSH Urine Color Yellow Urine Appearance Clear Urine pH 5.5 Ur Specific [place] 1.010 Urine Protein Negative Urine Glucose (UA) 3+ A Urine Ketones 2+ A Urine Blood Negative Urine Nitrite Negative Urine Bilirubin Negative Urine Urobilinogen 0.2 Ur Leukocyte Esterase Negative Urine RBC 0-2 Urine WBC 0-2 Ur Squamous Epith Cells Few Urine Bacteria None Stool Occult Blood Stool H. pylori Ag Lab Acknowledgement POC Glucose 02/17/24 12:50 WBC RBC Hgb Hct MCV MCH MCHC RDW Coeff of [place] Plt Count Neut % (Auto) Lymph % (Auto) [place] % (Auto) Eos % (Auto) Baso % (Auto) Neut # (Auto) Lymph # (Auto) [place] # (Auto) Eos # (Auto) Baso # (Auto) Abs Immat Gran (auto) Imm/Tot Granulo (auto) VBG pH VBG pCO2 VBG pO2 VBG HCO3 Sodium Potassium Chloride Carbon Dioxide Anion Gap BUN Creatinine Estimated Creat Clear Estimated GFR Glucose Hemoglobin A1c Lactate Calcium Phosphorus Magnesium Total Bilirubin Direct Bilirubin AST ALT Alkaline Phosphatase Troponin I Total Protein Albumin Triglycerides Cholesterol LDL Cholesterol, Calc HDL Cholesterol Lipase TSH Urine Color Urine Appearance Urine pH Ur Specific [place] Urine Protein Urine Glucose (UA) Urine Ketones Urine Blood Urine Nitrite Urine Bilirubin Urine Urobilinogen Ur Leukocyte Esterase Urine RBC Urine WBC Ur Squamous Epith Cells Urine Bacteria Stool Occult Blood Stool H. pylori Ag Lab Acknowledgement POC Glucose 600 H* Discharge Plan Discharge Disposition: Home, Self-Care Date of Admission: 02/17/24 14:48 Attending Provider on Discharge: Yoli Thao Primary Care Provider: Devang Mulligan Condition: Improved Anticipated Discharge Date/Time: 02/18/24 09:33 Discharge Medications: New metformin 500 mg Tablet 500 mg PO BIDWM Qty: 90 0RF Rx Instructions: 500mg BID for one week, then 500mg Qam and 1000mg HS for one week, then try to increase to 1000mg BID insulin glargine [Lantus Solostar U-100 Insulin] 100 unit/mL (3 mL) insulin pen 15 unit subcut HS Qty: 15 3RF omeprazole 20 mg Capsule,Delayed Release(Dr/Ec) 20 mg PO DAILY Qty: 30 0RF Continued atorvastatin 20 mg tablet 20 mg PO QHS aspirin 81 mg tablet,delayed release (DR/EC) 81 mg PO DAILY omeprazole 20 mg capsule,delayed release(DR/EC) 20 mg PO DAILY Discontinued metformin 1,000 mg tablet 1,000 mg PO BID Discharge Orders: Discharge Order (Routine); Ordered 02/18/24 Ordered By: Yoli Thao Additional Instructions: H Pylori test was negative! I think your stomach will feel better with improved glucose control and more probiotics (sauerkrat, yogurt, kombucha), in addition to once daily Omeprazole. Medications (Omeprazole, insulin and metformin) sent to [facility]. Take your insulin at night. Work on having protein and fat with your carbs and check your sugar 4 times/day, bring your log book to your appointment with Dr. Mulligan as scheduled. Return with any worsening symptoms, concerns, BG >500. Activity Level: Activity as Tolerated Discharge Diet: Diabetic Follow Up Appointments: Devang Mulligan MD [Primary Care Provider] - (patient already has appt scheduled with Dr. Mulligan on 02/28) Forms: [facility] Info Instructions
--- NOTE | 2024-02-18 14:24 | PC.NURSE ---
Pt pleasant and talkative. Diabetic education given on diet, s/s of hypo & hyperglycemia, medication management, safety, & administration. Education done verbally, teach back, demonstration and written handout. Pt was able to practice insulin pen administration on practice injection pad x4 with and RN present. All questions answered. IV DC'd, cath tip intact. DC to home with @ 1345.
== END 2024-02-18 13:45 | disposition home or self-care (01) ==
LOC: ED 14:24 → MEDSURG 14:49
PROVIDERS: Admitting Provider Internal Medicine; Emergency Provider Family Medicine; PCP Surgery; Visit Provider Internal Medicine
DX: E11.65 Type 2 diabetes mellitus with hyperglycemia (principal); R79.89 Other specified abnormal findings of blood chemistry; R74.02 Elevation of levels of lactic acid dehydrogenase [LDH]; Z91.199 Patient's noncompliance with other medical treatment and regimen due to unspecified reason; F12.90 Cannabis use, unspecified, uncomplicated; Z79.82 Long term (current) use of aspirin; Z87.11 Personal history of peptic ulcer disease; Z87.898 Personal history of other specified conditions; Z98.890 Other specified postprocedural states
CPT/HCPCS: 36415; 80048; 80061; 80076; 81001; 81003; 82270; 82803; 82947; 82962; 83036; 83605; 83690; 83735; 84100; 84443; 84484; 85018; 85025; 85027; 87338; 93005; 94761; 96361; 96365; 96366; 96372; 96375; 99284; 99285; A9270; G0378; J1815; J2470; J7030; J7042

== ENCOUNTER 2024-03-30 00:26 | Emergency (ER) | payer OTHER, SELFPAY ==
[2024-03-30 00:34] VITALS: BP 130/86; PULSE 60; RESP 18; TEMP 36.4; O2SAT 98; BMI 25.8
--- NOTE | 2024-03-30 01:00 | ED_ITS ---
HPI - Allergic Reaction General Date Seen: 03/30/24 Chief complaint: Allergic Reaction Stated complaint: Allergic Reaction Time Seen by Provider: 03/30/24 00:30 Source: patient Mode of arrival: ambulatory Limitations: no limitations History of Present Illness HPI narrative: Patient is a 59-year-old male presenting to emergency department concern of allergic reaction. He has a history of diabetes and was started on metformin and Lantus 1 month ago. He has been slowly increasing his Lantus and over the past 3 days he has been having swelling with bilateral forearms and a faint erythematous rash throughout his body that itches a. States the symptoms seem to get worse every time he takes his Lantus. Took his Lantus again this evening and noticed the symptoms occurring again so he came to the emergency department for evaluation. Does state may takes Benadryl the itching improves. Also has some pain on his bilateral lateral lower ribs stay says feels like he broke the ribs but denies any injuries. Notes that the rash is there also. Denies fevers, chills, chest pain, shortness of breath, weakness, numbness, lightheadedness, dizziness. Does state he had some nausea prior to arrival but then he ate some food and abdominal symptoms went away. Related Data Home Medications ?Medication ?Instructions ?Recorded ?Confirmed aspirin 81 mg tablet,delayed 81 mg PO DAILY 02/17/24 02/17/24 release atorvastatin 20 mg tablet 20 mg PO QHS 02/17/24 02/17/24 omeprazole 20 mg capsule,delayed 20 mg PO DAILY 02/17/24 02/17/24 release Previous Rx's ?Medication ?Instructions ?Recorded insulin glargine 100 unit/mL (3 15 unit (0.15 mL) subcut HS #15 mL 02/18/24 mL) subcutaneous pen (Lantus Solostar U-100 Insulin) metformin 500 mg tablet 500 mg PO BIDWM #90 tabs 02/18/24 omeprazole 20 mg capsule,delayed 20 mg PO DAILY #30 caps 02/18/24 release Allergies Allergy/AdvReac Type Severity Reaction Status Date / Time No Known Drug Allergies Allergy Verified 02/17/24 12:23 Review of Systems Status of ROS Reports: 10 or more systems reviewed and unremarkable except as noted in History and below [facility] Medical History Complaint of melena ?K92.1 - Melena (ICD-10) History of noncompliance with medical treatment ?Z91.199 - Patient's noncompliance with other medical treatment and regimen due to unspecified reason (ICD-10) Marijuana use ?F12.90 - Cannabis use, unspecified, uncomplicated (ICD-10) History of peptic ulcer disease ?Z87.11 - Personal history of peptic ulcer disease (ICD-10) History of prediabetes ?Z87.898 - Personal history of other specified conditions (ICD-10) Surgical History Status post colonoscopy ?Z98.890 - Other specified postprocedural states (ICD-10) Family History Brother Diabetes Mother Diabetes Heart disease Father Heart disease Social History What is your current living situation?: I presently have a place to live Problems where you live: no known problems Problems where you live details: none In the past 12 months, utilities in danger of being shut off: no In past 12 months, lack of transportation kept you from medical appts, meetings, work, or getting things needed for daily living: no In the past 12 mos, have been you worried that your food would run out before you had money to buy more?: never true In the past 12 mos, the food you bought just didn't last and you didn't have money to buy more?: never true Highest level of school completed/degree received: some college, no degree Smoking Status: Never smoker Do you use any of these nicotine containing products: None Second hand tobacco smoke exposure: No How often do you have a drink containing alcohol: 2-3 times a week Alcohol type: hard liquor How many standard drinks containing alcohol do you have on a typical day: 1 or 2 How often do you have six or more drinks on one occasion: Never AUDIT-C Alcohol total score: 3 Non-prescribed substance use: marijuana (any form) Caffeine: Yes How often does anyone, including family, friends and others, physically hurt you : never How often does anyone, including family, friends and others, insult or talk down to you: never How often does anyone, including family, friends and others, threaten you with harm: never How often does anyone, including family, friends and others, scream or curse at you: never service: No Exam Narrative: Exam Narrative: Const: Well-nourished, Well-developed, in mild distress Eyes: PERRL, no conjunctival injection, and symmetrical lids HENT: Atraumatic external nose and ears. Moist mucous membranes. Neck: Symmetric, trachea midline, No thyromegaly. CVS: RRR, No murmurs or gallops. Peripheral pulses 2+ and equal in all extremities RESP: Unlabored respiratory effort. Clear to auscultation bilaterally. GI: Nontender/Nondistended, No rebound or guarding. MSK:Extremities w/o deformity, Normal Active ROM Skin: Faint red rash noted throat body worse on his bilateral lateral lower ribs and forearms. Rash is blanching Neuro: Normal Muscle tone, No focal neurological deficits. Psych: Awake, Alert, & Oriented x3. Appropriate mood and affect. Const: Vital Signs, click to edit/add: Vital Signs - 24 hr 03/30/24 00:34 03/30/24 01:40 Temperature 97.5 F L Pulse Rate [Pulse Oximeter] 60 68 Respiratory Rate 18 16 Blood Pressure [Ri ght Upper Arm] 130/86 112/81 Pulse Oximetry 98 98 Oxygen Delivery Me thod Room Air Room Air Course Vital Signs Vital signs: Initial Vital Signs Temperature 97.5 F L 03/30/24 00:34 Temperature Source Temporal Artery Scan 03/30/24 00:34 Pulse Rate 60 03/30/24 00:34 Pulse Rhythm Regular 03/30/24 00:34 Respiratory Rate 18 03/30/24 00:34 Blood Pressure 130/86 03/30/24 00:34 Blood Pressure Mean 100 03/30/24 00:34 Blood Pressure Position Sitting 03/30/24 00:34 Pulse Oximetry 98 03/30/24 00:34 Oxygen Delivery Method Room Air 03/30/24 00:34 Vital Signs Temperature 97.5 F L 03/30/24 00:34 Pulse Rate 60 03/30/24 00:34 Respiratory Rate 18 03/30/24 00:34 Blood Pressure 130/86 03/30/24 00:34 Pulse Oximetry 98 03/30/24 00:34 Oxygen Delivery Method Room Air 03/30/24 00:34 Temperature 97.5 F L 03/30/24 00:34 Pulse Rate 68 03/30/24 01:40 Respiratory Rate 16 03/30/24 01:40 Blood Pressure 112/81 03/30/24 01:40 Pulse Oximetry 98 03/30/24 01:40 Oxygen Delivery Method Room Air 03/30/24 01:40 Medications Administered Medications: Discontinued Medications Generic Name Dose Route Start Last Admin Trade Name Miriam PRN Reason Stop Dose Admin Famotidine 20 mg 03/30/24 00:56 03/30/24 01:02 Famotidine 20 Mg Tablet PO 03/30/24 00:57 20 mg ONCE ONE Administration Prednisone 50 mg 03/30/24 00:56 03/30/24 01:02 Prednisone 10 Mg Tablet PO 03/30/24 00:57 50 mg ONCE ONE Administration MDM - Allergic Reaction MDM Narrative Medical decision making narrative: Patient is a 59-year-old male presenting for apparent allergic reaction. He was having abdominal symptoms earlier but the symptoms he states felt more like hunger and went away after he ate. I do not believe this is anaphylaxis. He states the only thing he can think of that might be causing his symptoms is the Lantus. Has not had any new other new lotions, creams, soaps, etc. vital is stable at this time. Patient is feeling slightly better after the medication. At this point he appears well I feel comfortable discharging him. I recommended he stop taking the Lantus for now. He is on metformin and that should help control his blood sugar until they can adjust his insulin. He will follow-up with his primary care provider on Sunday. I informed him though that if his blood sugar starts spiking again that he should retake his Lantus as the reaction is relatively mild at this time. I will prescribe him prednisone to help with the symptoms though. I informed him that this can spike his blood sugar. Discharge Plan Discharge Clinical Impression: Allergic reaction Qualifiers: Encounter type: initial encounter Qualified Code(s): T78.40XA - Allergy, unspecified, initial encounter Patient Disposition: Home, Self-Care Condition: Stable Instructions: General Allergic Reaction (ED) Additional Instructions: You can continue to take Benadryl as needed. Use the prednisone tomorrow. Speak to your primary care provider on Sunday and see if they want to continue the prednisone if they want you to adjust her Lantus. I recommend not taking her Lantus tomorrow and this your blood sugar spikes to over 600 as that can cause other medical issues. If her blood sugar does get up to 400 fer depending on how your feeling you can consider taking the Lantus as your allergic reaction was relatively minor and did not appear to be anaphylaxis. Prescriptions: No Action atorvastatin 20 mg tablet 20 mg PO QHS aspirin 81 mg tablet,delayed release (DR/EC) 81 mg PO DAILY omeprazole 20 mg capsule,delayed release(DR/EC) 20 mg PO DAILY metformin 500 mg Tablet 500 mg PO BIDWM Qty: 90 0RF Rx Instructions: 500mg BID for one week, then 500mg Qam and 1000mg HS for one week, then try to increase to 1000mg BID insulin glargine [Lantus Solostar U-100 Insulin] 100 unit/mL (3 mL) insulin pen 15 unit subcut HS Qty: 15 3RF omeprazole 20 mg Capsule,Delayed Release(Dr/Ec) 20 mg PO DAILY Qty: 30 0RF Follow Up/Referrals: Devang Mulligan MD [Primary Care Provider] - Stand Alone Forms: [employer] Info Instructions
[2024-03-30] MEDS: predniSONE 10 MG TABLET 50 MG PO (01:02)
[2024-03-30] MEDS: FAMOTIDINE 20 MG TABLET PO (01:02)
[2024-03-30 01:40] VITALS: BP 112/81; PULSE 68; RESP 16; O2SAT 98
== END 2024-03-30 02:06 | disposition home or self-care (01) ==
PROVIDERS: Emergency Provider Student in an Organized Health Care Education/Training Program; PCP Surgery
DX: R21 Rash and other nonspecific skin eruption (principal); T78.49XA Other allergy, initial encounter
CPT/HCPCS: 99282; A9270; J7512